=== PATIENT | male | born 1960 | race Caucasian/White ===

== ENCOUNTER 2024-09-29 11:37 | Emergency (ER) | payer MEDICARE, SELFPAY ==
[2024-09-29 11:59] VITALS: BP 128/91; PULSE 115; RESP 18; TEMP 36.9; O2SAT 97; BMI 31.9
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
[2024-09-29 13:27] VITALS: BP 138/88; PULSE 106; RESP 20; TEMP 36.8; O2SAT 97
== END 2024-09-29 13:28 | disposition home or self-care (01) ==
PROVIDERS: Emergency Provider Physician Assistant
DX: K04.7 Periapical abscess without sinus (principal)
CPT/HCPCS: 99281

== ENCOUNTER 2024-12-15 10:39 | Emergency (ER) | payer MEDICARE, SELFPAY ==
[2024-12-15 10:44] VITALS: BP 146/83; PULSE 80; RESP 17; TEMP 36.6; O2SAT 98; BMI 33.4
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
[2024-12-15 11:38] VITALS: BP 134/92; PULSE 73; RESP 16; O2SAT 97
== END 2024-12-15 11:40 | disposition home or self-care (01) ==
PROVIDERS: Emergency Provider Physician Assistant
DX: K04.7 Periapical abscess without sinus (principal)
CPT/HCPCS: 99281